=== PATIENT | male | born 1955 | race Caucasian/White ===

== ENCOUNTER 2018-02-04 12:28 | Inpatient (IN) | payer OTHER ==
[~2018-02-04] VITALS: Ht 175.3 cm; Wt 81.8 kg
[~2018-02-04 12:28] MED LIST: ATEN50TA41 PO; LISI1TAB3 PO; LOVA10TA PO; TAMS0.4C2 PO
[2018-02-04 13:50] LABS: BASOPHILS # (AUTO) 0.04 x10^3/uL (0-0.1); BASOPHILS % (AUTO) 0 % (0-1); EOSINOPHILS # (AUTO) 0.07 x10^3/uL (0-0.4); EOSINOPHILS % (AUTO) 0 % (1-7); LYMPHOCYTES # (AUTO) 2.62 x10^3/uL (1-3.4); LYMPHOCYTES % (AUTO) 17 % (22-44); MD NO; MEAN CORPUSCULAR HEMOGLOBIN 34.9 pg (27.5-34.5); MEAN CORPUSCULAR HGB CONC 33.8 g/dL (33.2-36.2); MEAN CORPUSCULAR VOLUME 103.4 fL (81-97); MEAN PLATELET VOLUME 8.1 fL (7.4-10.4); MONOCYTES # (AUTO) 1.37 x10^3/uL (0.2-0.8); MONOCYTES % (AUTO) 9 % (2-9); NEUTROPHILS # (AUTO) 11.47 x10^3/uL (1.8-6.8); NEUTROPHILS % (AUTO) 74 % (42-75); PLATELET COUNT 225 x10^3/uL (130-400); RED BLOOD COUNT 5.04 x10^6/uL (4.38-5.82); RED CELL DISTRIBUTION WIDTH 13.4 % (9.4-14.8)
[2018-02-04] MEDS ORDERED: ONDANSETRON 2MG/ML, 2ML IVPush ONE (14:00)
[2018-02-04] MEDS ORDERED: MORPHINE SULFATE 4 MG/ML, 1ML IVPush PRN (14:00)
[2018-02-04] MEDS ORDERED: SODIUM CHLORIDE FLUSH 10ML SYR IVF ONE (14:00)
[2018-02-04] MEDS ORDERED: SODIUM CHLORIDE 0.9% 1,000ML IVBOLUS ONE (14:00)
[2018-02-04 14:02] LABS: ALANINE AMINOTRANSFERASE 59 U/L (12-78); ALBUMIN 4.4 g/dL (3.4-5.0); ANION GAP 12 mmol/L (5-15); CALCIUM 9.8 mg/dL (8.5-10.1); CHLORIDE 96 mmol/L (98-107); CREATININE 3.72 mg/dL (0.7-1.3)
[2018-02-04 14:04] LABS: ALKALINE PHOSPHATASE 99 U/L (45-117); TOTAL PROTEIN 10.7 g/dL (6.4-8.2)
[2018-02-04] MEDS ORDERED: ONDANSETRON 2MG/ML, 2ML ONE (14:24)
[2018-02-04] MEDS ORDERED: FAMOTIDINE 20 MG/2 ML IVPush ONE (15:00)
[2018-02-04] MEDS ORDERED: SODIUM CHLORIDE 0.9% 1,000ML IV ONE (15:00)
[2018-02-04] MEDS ORDERED: FAMOTIDINE 20 MG/2 ML ONE (15:12)
[2018-02-04 15:19] LABS: CLOSTRIDIUM DIFFICILE ANTIGEN NEGATIVE; CLOSTRIDIUM DIFFICILE TOXIN NEGATIVE (Negative)
[2018-02-04] MEDS ORDERED: DOCUSATE 100 MG CAPSULE PO PRN (16:30)
[2018-02-04] MEDS ORDERED: LORazepam 2 MG/ML, 1ML IVPush PRN (16:30)
[2018-02-04] MEDS ORDERED: CALCIUM CARBONATE 500 MG TAB.CHEW PO PRN (16:30)
[2018-02-04] MEDS ORDERED: morphine SULFATE 10 MG/ML, 1ML IVPush PRN (16:30)
[2018-02-04] MEDS ORDERED: ONDANSETRON 2MG/ML, 2ML IVPush PRN (16:30)
[2018-02-04] MEDS ORDERED: LORazepam 1MG TABLET PO PRN (16:30)
[2018-02-04] MEDS ORDERED: OXYcodone IR 5MG TABLET PO PRN (16:30)
[2018-02-04] MEDS ORDERED: ACETAMINOPHEN 325 MG TABLET PO PRN (16:30)
[2018-02-04 16:52] LABS: TROPONIN I < 0.015 ng/mL (0.000-0.045)
[2018-02-04] MEDS: SODIUM CHLORIDE 0.9% 1,000 ML IV SCH ×2 (18:11→23:57)
[2018-02-04 18:54] LABS: MICROSCOPIC INDICATED
[2018-02-04 18:56] VITALS: BP 116/79
[2018-02-04 19:01] LABS: CULTURE INDICATED? YES
[2018-02-04] MEDS: LOPERAMIDE 2 MG CAPSULE PO PRN (20:08)
[2018-02-04] MEDS: FAMOTIDINE 20 MG TABLET PO SCH (20:08)
[2018-02-05 00:36] VITALS: BP 113/75
[2018-02-05] MEDS: LOPERAMIDE 2 MG CAPSULE PO PRN (00:53)
[2018-02-05 05:18] LABS: BASOPHILS # (AUTO) 0.06 x10^3/uL (0-0.1); BASOPHILS % (AUTO) 1 % (0-1); EOSINOPHILS # (AUTO) 0.43 x10^3/uL (0-0.4); EOSINOPHILS % (AUTO) 4 % (1-7); LYMPHOCYTES # (AUTO) 2.67 x10^3/uL (1-3.4); LYMPHOCYTES % (AUTO) 26 % (22-44); MD NO; MEAN CORPUSCULAR HEMOGLOBIN 35.9 pg (27.5-34.5); MEAN CORPUSCULAR HGB CONC 35.1 g/dL (33.2-36.2); MEAN CORPUSCULAR VOLUME 102.4 fL (81-97); MEAN PLATELET VOLUME 7.5 fL (7.4-10.4); MONOCYTES # (AUTO) 1.11 x10^3/uL (0.2-0.8); MONOCYTES % (AUTO) 11 % (2-9); NEUTROPHILS # (AUTO) 6.14 x10^3/uL (1.8-6.8); NEUTROPHILS % (AUTO) 59 % (42-75); PLATELET COUNT 130 x10^3/uL (130-400); RED BLOOD COUNT 3.59 x10^6/uL (4.38-5.82); RED CELL DISTRIBUTION WIDTH 13.4 % (9.4-14.8)
[2018-02-05 05:25] LABS: ALANINE AMINOTRANSFERASE 36 U/L (12-78); ALBUMIN 2.8 g/dL (3.4-5.0); ANION GAP 8 mmol/L (5-15); CALCIUM 6.9 mg/dL (8.5-10.1); CHLORIDE 109 mmol/L (98-107)
[2018-02-05 05:30] LABS: ALKALINE PHOSPHATASE 58 U/L (45-117); CREATININE 1.77 mg/dL (0.7-1.3); TOTAL PROTEIN 6.5 g/dL (6.4-8.2); TROPONIN I < 0.015 ng/mL (0.000-0.045)
[2018-02-05 07:59] VITALS: BP 101/66
[2018-02-05] MEDS ORDERED: MAGNESIUM SULFATE PMX 4GM/100M 100 ML IV ONE (09:00)
[2018-02-05] MEDS ORDERED: CALCIUM GLUCONATE 4.6 MEQ in SODIUM CHLORIDE 0.9% 50 ML IV ONE (09:30)
[2018-02-05] MEDS: FAMOTIDINE 20 MG TABLET PO SCH (09:34)
[2018-02-05 12:58] VITALS: BP 132/85
== END 2018-02-05 15:00 | disposition home or self-care (01) | DRG 683 ==
LOC: ED 14:06 → EDIP 14:59 → 4EST 16:47
PROVIDERS: ADMIT Internal Medicine; ATTEND Family Medicine
DX: N17.0 Acute kidney failure with tubular necrosis (principal); E87.1 Hypo-osmolality and hyponatremia; I95.9 Hypotension, unspecified; E86.0 Dehydration; N40.1 Benign prostatic hyperplasia with lower urinary tract symptoms; E87.6 Hypokalemia; K29.80 Duodenitis without bleeding; K29.70 Gastritis, unspecified, without bleeding; I10 Essential (primary) hypertension; R55 Syncope and collapse; D72.829 Elevated white blood cell count, unspecified; Z83.3 Family history of diabetes mellitus; Z86.73 Personal history of transient ischemic attack (TIA), and cerebral infarction without residual deficits; Z84.1 Family history of disorders of kidney and ureter; Z87.891 Personal history of nicotine dependence; Z90.79 Acquired absence of other genital organ(s); Z98.52 Vasectomy status
CPT/HCPCS: 36415; 74176; 80053; 80074; 81001; 82436; 82570; 83605; 83690; 83735; 84100; 84133; 84155; 84156; 84165; 84166; 84300; 84484; 85025; 87086; 87324; 89055; 93005; 96361; 96374; 96375; J0610; J2405; J3475; J7030; S0028

== ENCOUNTER 2020-01-15 12:40 | Emergency (ER) | payer OTHER ==
[~2020-01-15] VITALS: Ht 175.3 cm; Wt 93.0 kg
[~2020-01-15 12:40] MED LIST changes: +LISI1TAB23 PO; -LISI1TAB3 PO
[2020-01-15] MEDS ORDERED: SODIUM CHLORIDE FLUSH 10ML SYR IVF ONE (14:00)
[2020-01-15 14:15] LABS: ANION GAP 10 mmol/L (5-15); CALCIUM 7.9 mg/dL (8.5-10.1); CHLORIDE 102 mmol/L (98-107)
[2020-01-15 14:19] LABS: ALANINE AMINOTRANSFERASE 81 U/L (12-78); ALKALINE PHOSPHATASE 80 U/L (45-117); BILIRUBIN,TOTAL 6.8 mg/dL (0.2-1.0); CREATININE 1.08 mg/dL (0.7-1.3); INTERNATIONAL NORMALIZED RATIO 1.87 (0.93-1.1); PROTHROMBIN TIME 19.9 Seconds (9.6-11.5); TOTAL PROTEIN 7.9 g/dL (6.4-8.2)
--- NOTE | 2020-01-15 14:23 | NUR ---
PT RESTING IN BED, AT BEDSIDE. UPDATED ON PLAN OF CARE. QUESTIONS AND CONCERNS ADDRESSED, PT HAS NO FURTHER CONCERNS AT THIS TIME. CALL LIGHT IN REACH.
--- NOTE | 2020-01-15 14:26 | NUR ---
PT PROVIDED WITH URINE CUP, DENIES ABILITY TO URINATE AT THIS TIME, REFUSING A STRAIGHT CATH. PT INFORMED ON PROCEDURE AND NEED FOR SAMPLE, VERBALIZES UNDERSTANDING. STATES HE WILL ATTEMPT TO URINATE SOON HE IS ABLE, AND WILL PRESS HIS CALL LIGHT.
[2020-01-15 14:29] LABS: BASOPHILS # (AUTO) 0.04 x10^3/uL (0-0.1); BASOPHILS % (AUTO) 1 % (0-1); EOSINOPHILS # (AUTO) 0.07 x10^3/uL (0-0.4); EOSINOPHILS % (AUTO) 1 % (1-7); LYMPHOCYTES # (AUTO) 1.21 x10^3/uL (1-3.4); LYMPHOCYTES % (AUTO) 24 % (22-44); MD SCAN; MEAN CORPUSCULAR HEMOGLOBIN 38.4 pg (27.5-34.5); MEAN CORPUSCULAR HGB CONC 34.4 g/dL (33.2-36.2); MEAN CORPUSCULAR VOLUME 111.7 fL (81-97); MEAN PLATELET VOLUME 7.3 fL (7.4-10.4); MONOCYTES # (AUTO) 0.83 x10^3/uL (0.2-0.8); MONOCYTES % (AUTO) 16 % (2-9); NEUTROPHILS # (AUTO) 2.95 x10^3/uL (1.8-6.8); NEUTROPHILS % (AUTO) 58 % (42-75); PLATELET COUNT 88 x10^3/uL (130-400); RED BLOOD COUNT 2.74 x10^6/uL (4.38-5.82); RED CELL DISTRIBUTION WIDTH 16.7 % (9.4-14.8)
--- NOTE | 2020-01-15 15:13 | NUR ---
REPORT FROM BERTA SIFUENTES.
--- NOTE | 2020-01-15 15:36 | NUR ---
PT RESTING IN BED IN CARE OF AWAITING PARACENTESIS. NAD. UA SENT (VERY SMALL AMT, REYNALDO, CLEAR). CALL CARRILLO IN REACH. VSS.
--- NOTE | 2020-01-15 16:33 | NUR ---
called IR. sts pt is next. pt updated. as
[2020-01-15] MEDS ORDERED: LIDOCAINE 1%, 10ML ONE (16:36)
--- NOTE | 2020-01-15 16:40 | NUR ---
ir here to get pt, given chart. vss. as
[2020-01-15 16:41] LABS: MICROSCOPIC INDICATED
[2020-01-15 16:55] LABS: CULTURE INDICATED? YES
--- NOTE | 2020-01-15 17:51 | NUR ---
PT BACK FROM IR. BP STABLE. ABD SOFT. STS FEELS BETTER, WANTS TO GO HOME.
--- NOTE | 2020-01-15 18:29 | NUR ---
andriy in room. labs from paracentesis need to result then pt [facility] home if normal. pt aware. nad. vss. as
[2020-01-15 19:14] VITALS: BP 125/69
== END 2020-01-15 19:16 | disposition home or self-care (01) ==
LOC: ED 14:19
DX: K70.31 Alcoholic cirrhosis of liver with ascites (principal); R74.8 Abnormal levels of other serum enzymes; I10 Essential (primary) hypertension; Z86.73 Personal history of transient ischemic attack (TIA), and cerebral infarction without residual deficits
CPT/HCPCS: 36415; 49083; 80053; 81001; 82042; 83615; 83690; 85025; 85610; 87070; 87086; 87205; 89051; 93005; 99285; J3490

== ENCOUNTER 2020-02-15 14:00 | Emergency (ER) | payer OTHER ==
[~2020-02-15] VITALS: Ht 175.3 cm; Wt 79.1 kg
--- NOTE | 2020-02-15 14:06 | NUR ---
TOOL CRIB LEAD: PT IN THE BATHROOM
--- NOTE | 2020-02-15 14:22 | NUR ---
DR PINEDA BS FOR EXAM. PT PRESENTS OUTPATIENT LAB ORDER. DATED January. STATES HE HAS AN APPOINTMENT AT [facility] TOMORROW. PT STATES "THEY TOLD ME TO GET AN ULTRASOUND", NOT SCHEDULED BY OFFICE ([facility]?). "I FEEL PRETTY GOOD". PT CHOSE TO HAVE U/S AND BLOOD WORK DONE TODAY WHILE AT ED.
[2020-02-15] MEDS ORDERED: SPIR25TA5 PO (14:34)
[2020-02-15] MEDS ORDERED: FURO20TA3 PO (14:34)
[2020-02-15] MEDS ORDERED: MILK175C5 PO (14:34)
[2020-02-15] MEDS ORDERED: OMEP-110 PO (14:34)
[2020-02-15 15:04] LABS: ALANINE AMINOTRANSFERASE 40 U/L (12-78); ALBUMIN 1.9 g/dL (3.4-5.0); ANION GAP 7 mmol/L (5-15); CALCIUM 8.2 mg/dL (8.5-10.1); CHLORIDE 101 mmol/L (98-107); CREATININE 0.99 mg/dL (0.7-1.3)
[2020-02-15 15:06] LABS: ALKALINE PHOSPHATASE 132 U/L (45-117); BILIRUBIN,TOTAL 3.4 mg/dL (0.2-1.0); TOTAL PROTEIN 8.7 g/dL (6.4-8.2)
[2020-02-15 15:33] LABS: MD YES; MEAN CORPUSCULAR HEMOGLOBIN 38.2 pg (27.5-34.5); MEAN CORPUSCULAR HGB CONC 34.2 g/dL (33.2-36.2); MEAN CORPUSCULAR VOLUME 111.6 fL (81-97); MEAN PLATELET VOLUME 7.1 fL (7.4-10.4); PLATELET COUNT 113 x10^3/uL (130-400); RED BLOOD COUNT 2.92 x10^6/uL (4.38-5.82); RED CELL DISTRIBUTION WIDTH 14.1 % (9.4-14.8)
[2020-02-15 15:49] LABS: BASOS#(MANUAL) 0.07 x10^3/uL (0-0.1); BASOS% (MANUAL) 2 % (0-1); EOS#(MANUAL) 0.14 x10^3/uL (0.0-0.4); EOS% (MANUAL) 4 % (1-7); LYMPH#(MANUAL) 1.73 x10^3/uL (1-3.4); LYMPHS% (MANUAL) 48 % (22-44); MONOS% (MANUAL) 36 % (2-9); MYELOCYTES# (MANUAL) 0.04 x10^3/uL (0-0); MYELOCYTES% (MANUAL) 1 % (0-0); REACTIVE LYMPHS # (MANUAL) 0.07 x10^3/uL (0-0); REACTIVE LYMPHS % (MANUAL) 2 % (0-0); SEG#(MANUAL) 0.25 x10^3/uL (1.8-6.8); SEGS% (MANUAL) 7 % (42-75)
[2020-02-15 15:51] LABS: ANISOCYTOSIS 1+
[2020-02-15 15:52] LABS: <PLATELET ESTIMATE> DECREASED; <PLT MORPHOLOGY> NORMAL PLT MORPH
[2020-02-15 16:18] VITALS: BP 104/51
--- NOTE | 2020-02-15 17:25 | NUR ---
PT ENDORSED TO BREAK RN: VITO.
== END 2020-02-15 17:50 | disposition home or self-care (01) ==
LOC: ED 14:41
DX: K70.30 Alcoholic cirrhosis of liver without ascites (principal)
CPT/HCPCS: 36415; 76700; 80053; 82105; 85025; 85730; 99284